=== PATIENT | female | born 1965 | race Caucasian/White ===

== ENCOUNTER 2021-05-07 07:51 | Outpatient (REF) | payer OTHER, SELFPAY ==
[2021-05-07 08:09] LABS: MANUAL DIFF FLAG NO
[2021-05-07 08:15] LABS: Basophils Percent Auto 0.6 % (0-2); Eosinophils Absolute Auto 0.1 X10*3/uL (0.0-0.4); Eosinophils Percent Auto 1.5 % (0-4); Hematocrit 40.2 % (37-47); Hemoglobin 13.4 g/dl (12.0-16.0); Imm Gran Abs Auto 0.03 X10*3/uL (0.00-0.03); Imm Gran Pct Auto 0.4 % (0.0-0.4); Lymphocytes Absolute Auto 2.3 X10*3/uL (1.2-4.9); Lymphocytes Percent Auto 34.5 % (20-40); Mean Corpuscular HGB Conc 33.3 g/dl (31.0-35.0); Mean Corpuscular Hemoglobin 31.5 pg (27.0-33.0); Mean Corpuscular Volume 94.6 fL (80-98); Mean Platelet Volume 10.9 fL (9.4-12.3); Monocytes Absolute Auto 0.4 X10*3/uL (0.1-1.2); Monocytes Percent Auto 5.7 % (2-11); Neutrophils Absolute Auto 3.8 X10*3/uL (2.0-8.3); Neutrophils Percent Auto 57.3 % (45-73); Platelet Count 264 X10*3/uL (160-400); Red Blood Count 4.25 X10*6/uL (4.20-5.50); Red Cell Distribution Width 12.3 % (11.0-16.0); White Blood Count 6.7 X10*3/uL (4.8-10.8)
[2021-05-07 08:24] LABS: Estimated Average Glucose 100 mg/dL; Hemoglobin A1c % 5.1 %
[2021-05-07 09:28] LABS: Alanine Aminotransferase 26 U/L (0-31); Albumin Level 4.6 g/dL (3.5-5.0); Alkaline Phosphatase 82 U/L (39-117); Anion Gap 14 (12-20); Aspartate Amino Transferase 21 U/L (5-31); Bilirubin Total 0.5 mg/dL (0.0-1.0); Blood Urea Nitrogen 13 mg/dL (9-16); Calcium 9.7 mg/dL (8.4-10.2); Carbon Dioxide 23 mmol/L (22-29); Chloride 108 mmol/L (96-108); Cholesterol 221 mg/dL; Estimated Glomerular Filt Rate > 60; Glucose Fasting 97 mg/dL (60-99); HDL Cholesterol 73 mg/dL; LDL Cholesterol Calculated 138 mg/dl; Potassium 4.4 mmol/L (3.3-5.1); Sodium 141 mmol/L (135-145); Total Protein 7.6 g/dL (6.5-8.0); Triglycerides 51 mg/dL
[2021-05-07 10:11] LABS: TSH reflex Free T4 0.35 uIU/mL (0.32-4.0)
== END 2021-05-07 07:52 | disposition home or self-care (01) ==
LOC: HO.LAB 07:51
PROVIDERS: PCP Physician Assistant; Visit Provider Physician Assistant
DX: E03.9 Hypothyroidism, unspecified (principal); E78.00 Pure hypercholesterolemia, unspecified
CPT/HCPCS: 36415; 80053; 80061; 83036; 84443; 85025

== ENCOUNTER 2022-03-02 07:36 | Outpatient (REF) | payer OTHER, SELFPAY ==
[2022-03-02 09:10] LABS: Alanine Aminotransferase 34 U/L (0-31); Albumin Level 4.7 g/dL (3.5-5.0); Alkaline Phosphatase 71 U/L (39-117); Anion Gap 15 (12-20); Aspartate Amino Transferase 25 U/L (5-31); Bilirubin Total 0.6 mg/dL (0.0-1.0); Blood Urea Nitrogen 17 mg/dL (9-16); Calcium 9.9 mg/dL (8.4-10.2); Carbon Dioxide 23 mmol/L (22-29); Chloride 107 mmol/L (96-108); Cholesterol 193 mg/dL; Estimated Glomerular Filt Rate > 60; Glucose Fasting 106 mg/dL (60-99); HDL Cholesterol 61 mg/dL; LDL Cholesterol Calculated 124 mg/dl; Potassium 4.5 mmol/L (3.3-5.1); Sodium 140 mmol/L (135-145); Total Protein 7.6 g/dL (6.5-8.0); Triglycerides 43 mg/dL
[2022-03-02 09:21] LABS: TSH reflex Free T4 0.43 uIU/mL (0.32-4.0)
== END 2022-03-02 07:37 | disposition home or self-care (01) ==
LOC: HO.LAB 07:36
PROVIDERS: PCP Physician Assistant; Visit Provider Physician Assistant
DX: E03.9 Hypothyroidism, unspecified (principal); E78.00 Pure hypercholesterolemia, unspecified
CPT/HCPCS: 36415; 80053; 80061; 84443

== ENCOUNTER 2023-03-07 07:43 | Outpatient (REF) | payer OTHER, SELFPAY ==
[2023-03-07 08:04] LABS: Hematocrit 40.1 % (37.0-47.0); Hemoglobin 13.6 g/dl (12.0-16.0); Mean Corpuscular HGB Conc 33.9 g/dl (31.0-35.0); Mean Corpuscular Hemoglobin 31.6 pg (27.0-33.0); Mean Platelet Volume 10.7 fL (9.4-12.3); Platelet Count 300 X10*3/uL (160-400); Red Blood Count 4.31 X10*6/uL (4.20-5.50); Red Cell Distribution Width 11.9 % (11.0-16.0); White Blood Count 6.1 X10*3/uL (4.8-10.8)
[2023-03-07 08:48] LABS: Alanine Aminotransferase 35 U/L (0-31); Albumin Level 4.6 g/dL (3.5-5.0); Alkaline Phosphatase 76 U/L (39-117); Anion Gap 13 (12-20); Aspartate Amino Transferase 22 U/L (5-31); Bilirubin Total 0.6 mg/dL (0.0-1.0); Blood Urea Nitrogen 17 mg/dL (9-16); Calcium 9.9 mg/dL (8.4-10.2); Carbon Dioxide 24 mmol/L (22-29); Chloride 106 mmol/L (96-108); Cholesterol 182 mg/dL; Estimated Glomerular Filt Rate > 60; Glucose Fasting 105 mg/dL (60-99); HDL Cholesterol 58 mg/dL; LDL Cholesterol Calculated 116 mg/dl; Potassium 4.2 mmol/L (3.3-5.1); Sodium 139 mmol/L (135-145); Total Protein 7.4 g/dL (6.5-8.0); Triglycerides 43 mg/dL
[2023-03-07 09:03] LABS: TSH reflex Free T4 1.19 uIU/mL (0.32-4.0)
[2023-03-07 09:07] LABS: Microalbum/Creatinine Ratio Ur 12.2 ug/mg cr
== END 2023-03-07 07:44 | disposition home or self-care (01) ==
LOC: HO.LAB 07:43
PROVIDERS: PCP Physician Assistant; Visit Provider Physician Assistant
DX: E03.9 Hypothyroidism, unspecified (principal); E78.00 Pure hypercholesterolemia, unspecified; I10 Essential (primary) hypertension
CPT/HCPCS: 36415; 80053; 80061; 82043; 84443; 85027

== ENCOUNTER 2024-05-06 13:23 | Outpatient (AMB) | payer BC, SELFPAY ==
[2024-05-06 13:27] VITALS: BP 120/68; PULSE 76; O2SAT 97; BMI 31.1
--- NOTE | 2024-05-06 13:27 | A.OFFPC_ITS ---
Vital Signs 05/06/24 13:27 Height 5 ft 4 in Weight 181 lb BMI 31.1 BP 120/68 Blood Pressure Location Lt brachial Position Sitting Pulse 76 Pulse Source Pulse Oximeter Pulse Oximetry (%) 97 Oxygen Delivery Method Room Air Intake Visit Reasons: pe Intake Note: Patient is here today for a physical. 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 Accompanied by: Self / Same As Patient Allergies No Known Allergies [No Known Allergies*] Allergy (Verified 05/06/24 13:36) Medication List - Last Reconciled 05/06/24 by Bryan Galvan PA-C levothyroxine 112 mcg PO DAILY 90 days lisinopril 5 mg PO DAILY 30 days simvastatin 10 mg PO DAILY Tobacco use date assessed: 05/06/24 Dental Screening Dental Screen Date: 05/06/24 Did you have a dental visit in the last 12 months?: Yes Did you have a dental problem in the last 6 months where you did not have access to dental care?: No Was dental information given to patient?: Patient has dentist HPI pe HPI Details Patient is a 58-year-old female here today for a PE.? Patient has a past medical history significant for hypothyroidism,? and High cholesterol. Hypertension: Blood pressure in office acceptable, continues on low-dose lisinopril with good effect. .. Hypothyroidism:? Most recent TSH acceptable, will recheck and continue to follow..? Otherwise does not exam the any other hypothyroid symptoms . Will continue her current levothyroxine dose. .. Obesity: Has lost weight since last office visit. Patient does understand her BMI is over 30 and will continue to be more physically active and adapting to better eating habits to reduce her weight .. HLD:? Patient's most recent lipid panel showing improved total cholesterol and LDL. Continues on low-dose statin therapy with good effect. .. Colonoscopy: done 2014 - repeat 10years-needs repeat in 2024 .. Mammo: Followed by [facility] every 6 month- has a family history of breast cancer .. 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 1. Little interest or pleasure in doing things: not at all 2. Feeling down, depressed, or hopeless: not at all 3. Trouble falling or staying asleep, or sleeping too much: not at all 4. Feeling tired or having little energy: not at all 5. Poor appetite or overeating: not at all 6. Feeling bad about yourself - or that you are a failure or have let yourself or your family down: not at all 7. Trouble concentrating on things, such as reading the newspaper or watching television: not at all 8. Moving or speaking so slowly that other people could have noticed. Or the opposite - being so fidgety or restless that you have been moving around a lot more than usual: not at all 9. Thoughts that you would be better off or of hurting yourself in some way: not at all Total score: 0 Depression Screening Interpretation: Negative Depression Screening Done: Yes 16005 - PHQ-9 Billing: Yes Source: Developed by Drs. Jignesh Kaminski, Tracie Aleman, Nikita Vallejo and colleagues, with an educational zulema from [employer]. Thrive Questionnaire Date Thrive assessed: 05/06/24 I am a: Patient What is your living situation today?: I have a steady place to live Within the past 12 months, did the food you bought not last and you didn't have the money to get more?: Never true Within the past 12 months, did you worry whether your food would run out before you got money to buy more?: Never true Do you have trouble paying for medicines?: No Do you have trouble getting transportation to medical appointments?: No Do you have trouble paying your heating and electricity bill?: No Do you have trouble taking care of your child, family member or friend?: No Do you have trouble with day-to-day activities such as bathing, preparing meals, shopping, managing finances, etc.?: No Are you currently unemployed and looking for a job?: No Are you interested in more education?: No Please select the resources that you would like help with: None Currently or been in a relationship where the following occur: No concerns reported THRIVE Score: 0 AUDIT C Alcohol Use Questionnaire (AUDIT-C) 1. How often do you have a drink containing alcohol?: 2-3 times a week 2. How many drinks containing alcohol do you have on a typical day when you are drinking?: 3 or 4 3. How often do you have six or more drinks on one occasion?: Never Total Score: 4 MAYRA-7 AMB Questionnaire MAYRA-7 Date MAYRA - 7 assessed: 05/06/24 Feeling nervous, anxious, or on edge: 0 = Not at all Not being able to stop or control worryin = Not at all Worrying too much about different things: 0 = Not at all Trouble relaxin = Not at all Being so restless that it is hard to sit still: 0 = Not at all Becoming easily annoyed or irritable: 0 = Not at all Feeling afraid as if something awful might happen: 0 = Not at all Total MAYRA-7 score (0-4 normal; 5-9 mild; 10-14 moderate; 15-21 severe): 0 Source: Developed by Drs. Jignesh Kaminski, Tracie Aleman, Nikita Vallejo and colleagues, with an educational zulema from [employer]. MAYRA-7 Assessment Billing MAYRA-7 Assessment Tool: MAYRA-7 Assessment 87124 Review of Systems Const Denies body aches, Denies chills, Denies excessive sweating, Denies fatigue, Denies fever(s) and Denies headache(s) Eyes Denies blurry vision ENT Denies dysphagia, Denies vertigo, Denies dizziness, Denies headache(s), Denies hearing loss and Denies tinnitus Card Denies chest pain, Denies chest pain with activity, Denies syncope, Denies irregular heart rhythm and Denies dyspnea Resp Denies chest congestion, Denies cough, Denies hemoptysis, Denies dyspnea and Denies wheezing GI Denies abdominal pain, Denies melena, Denies hematochezia, Denies coffee ground emesis, Denies dysphagia, Denies diarrhea, Denies nausea and Denies vomiting Denies urinary frequency, Denies dysuria, Denies urinary hesitancy and Denies urinary urgency Musc Denies arthralgias, Denies limited range of motion, Denies muscle cramps and Denies muscle weakness Skin/Breast Denies rash and Denies skin ulcer Neuro Denies Abnormal speech present, Denies confusion, Denies vertigo, Denies dizziness, Denies syncope, Denies headache(s), Denies memory loss and Denies seizure-like activity Psych Denies anxiety, Denies confusion, Denies depression, Denies memory loss, Denies panic attacks and Denies paranoia Endo Denies excessive sweating, Denies fatigue, Denies flushing, Denies polydipsia and Denies polyuria Aller/Immun Denies wheezing Physical exam (Primary Care) Vital Signs: Last Vital Signs Pulse 76 05/06/24 13:27 BP 120/68 05/06/24 13:27 Pulse Ox 97 05/06/24 13:27 Oxygen Delivery Method Room Air 05/06/24 13:27 BMI result Body Mass Index 31.1 Tobacco/Smoking Status: Tobacco use Status Tobacco use date assessed 05/06/24 05/06/24 13:29 Patient Tobacco Use Status Never used Tobacco 05/06/24 13:29 e-Cigarette/Vaping Use Never Used 05/06/24 13:29 PHQ-9: PHQ-9 Score PHQ-9: Total score 0 05/06/24 13:29 Depression Screening Interpretation: Negative Thrive Assessment: Date of Thrive Assessment Date Thrive assessed 05/06/24 05/06/24 13:29 Currently or been in a relationship where the following occur: No concerns reported Const General: cooperative, comfortable, no acute distress, alert and awake; No confusion Orientation/consciousness: oriented to person, oriented to place, patient oriented x3 and No confusion HENMT Head: Yes normocephalic Ears: external ears normal and TM's normal bilaterally Face and sinus: No sinus tenderness Mouth: Normal oral and palatal mucosa present and tongue normal Teeth and gingiva: dentition normal and gingiva normal Throat: Yes posterior oropharynx normal, Yes tonsils normal and Yes uvula midlin e Eyes Conjunctivae: conjunctivae normal Sclerae: sclerae normal Pupils: Equal, round and reactive pupils present EOM: EOMs intact bilaterally Direct Ophthalmoscopy: No no photophobia Neck Neck: Yes no lymphadenopathy, No tender and Yes no JVD Thyroid: Thyroid normal Carotids: no bruits Chest Chest palpation & inspection: no tenderness Resp Effort & Inspection: normal respiratory effort, no audible wheezes, not labored and no stridor Auscultation: no crackles, no rales, no rhonchi and no wheezes Cardio Jugular venous distension: no JVD Rate: regular rate, not bradycardic and not tachycardic Rhythm: regular rhythm Bruits: no carotid bruits Peripheral pulses: Peripheral pulses 2+ throughout GI Inspection: Yes normal to inspection, No abdominal wall ecchymosis and No visible herniation Palpation (GI): Soft to palpation, nontender, no guarding, not rigid and No hepatosplenomegaly present Auscultation: normoactive bowel sounds General: Yes no CVA tenderness Back/Spine/Pelvis Back: no CVA tenderness and No back tenderness Cervical Spine: cervical ROM normal Thoracic/Lumbar Spine: thoracic and lumbar spine normal to inspection, straight leg raise negative bilaterally, No thoraco-lumbar ROM limited and No lumbar spinal tenderness Skin Lesions: no lesions Rashes: no rashes Wounds: no wounds Neuro General: oriented to person, oriented to place, patient oriented x3, CN's II-XI intact bilaterally and No confusion Cranial nerves: Yes Equal, round and reactive pupils present and Yes Normal accommodation reflex present Cognition (Neuro): normal cognition Speech: No Abnormal speech present Gait exam (Neuro): Normal gait present Motor exam (neuro): 5/5 motor strength present throughout Extrem Right upper extremity: full ROM; no cyanosis Left upper extremity: full ROM; no cyanosis Right lower extremity: no edema Left lower extremity: no edema Psych Appearance: grossly normal Mental Status: mental status grossly normal Affect: normal affect Attitude: cooperative Thought process: Normal thought process present Assessment and Plan Assessment & Plan (1) Annual physical exam: Code(s): Z00.00 - Encounter for general adult medical examination without abnormal findings (2) HTN (hypertension): Code(s): I10 - Essential (primary) hypertension Qualifiers: Hypertension type: primary hypertension Qualified Code(s): I10 - Essential (primary) hypertension Plan: Patient's blood pressure acceptable today in office. Will continue her current dose of lisinopril with goal blood pressure to be below 140/90 (3) Obese: Code(s): E66.9 - Obesity, unspecified Qualifiers: Obesity type: due to excess calories Obesity classification: adult class 1 (BMI 30 - 34.9) Serious obesity comorbidity presence: without serious comorbidity Body mass index: BMI 32.0-32.9 Qualified Code(s): E66.09 - Other obesity due to excess calories; Z68.32 - Body mass index [BMI] 32.0-32.9, adult Plan: Has been able to lose a few lb since last office visit.. Patient does understand her BMI is over 30 will work on being more physically active to reduce her weight. (4) HLD (hyperlipidemia): Code(s): E78.5 - Hyperlipidemia, unspecified Qualifiers: Hyperlipidemia type: pure hypercholesterolemia Qualified Code(s): E78.00 - Pure hypercholesterolemia, unspecified Plan: Patient's most recent lipid panel showing appropriate LDL and total cholesterol. Will continue low-dose does statin therapy with goal LDL to be below 160 (5) Hypothyroidism: Code(s): E03.9 - Hypothyroidism, unspecified Qualifiers: Hypothyroidism type: unspecified Qualified Code(s): E03.9 - Hypothyroidism, unspecified Plan: Patient's most recent TSH stable. Has been clinically and chemically euthyroid. Will continue current dose of levothyroxine 112 mcg. Will continue to follow TSH to assure normal. (6) Family history of breast cancer: Code(s): Z80.3 - Family history of malignant neoplasm of breast Plan: Patient's mother was diagnosed with breast cancer thus patient gets mammograms every 6 months done at [facility]. Orders: Orders Microalbumin, Random (w Creat) Today I10 - Essential (primary) hypertension Comprehensive [place]. Panel Fast Today I10 - Essential (primary) hypertension Lipid Panel Today E78.00 - Pure hypercholesterolemia, unspecified Complete Blood Count no Diff Today I10 - Essential (primary) hypertension TSH reflex Free T4 Today E03.9 - Hypothyroidism, unspecified Medications: Refilled simvastatin 10 mg PO DAILY 90 tabs 2RF E03.9 - Hypothyroidism, unspecified Patient Instructions: Goal: Blood pressure remain below 140/90, LDL to remain below 160 Barriers: Adherence to physical activity and healthy eating habits Coding Level of Care Code Est Pt Prev Care 40-64y(64503) Diagnoses Annual physical exam Z00.00 Primary hypertension I10 Hypertension type: primary hypertension Class 1 obesity due to excess calories without serious comorbidity with body mass index (BMI) of 32.0 to 32.9 in adult E66.09; Z68.32 Obesity type: due to excess calories Obesity classification: adult class 1 (BMI 30 - 34.9) Serious obesity comorbidity presence: without serious comorbidity Body mass index: BMI 32.0-32.9 Pure hypercholesterolemia E78.00 Hyperlipidemia type: pure hypercholesterolemia Hypothyroidism, unspecified type E03.9 Hypothyroidism type: unspecified Family history of breast cancer Z80.3 Additional Codes MAYRA-7 Assessment Billing - MAYRA-7 Assessment Tool: MAYRA-7 Assessment 26943 ([id number])
== END 2024-05-06 14:06 | disposition home or self-care (01) ==
PROVIDERS: Visit Provider Physician Assistant
DX: Z00.00 Encounter for general adult medical examination without abnormal findings (principal); I10 Essential (primary) hypertension; E66.09 Other obesity due to excess calories; Z68.32 Body mass index [BMI] 32.0-32.9, adult; E78.00 Pure hypercholesterolemia, unspecified; E03.9 Hypothyroidism, unspecified; Z80.3 Family history of malignant neoplasm of breast
CPT/HCPCS: 99396

== ENCOUNTER 2024-05-13 08:44 | Outpatient (REF) | payer BC, SELFPAY ==
[2024-05-13 09:33] LABS: Hematocrit 38.9 % (37.0-47.0); Hemoglobin 13.2 g/dl (12.0-16.0); Mean Corpuscular HGB Conc 33.9 g/dl (31.0-35.0); Mean Corpuscular Hemoglobin 31.2 pg (27.0-33.0); Mean Platelet Volume 10.9 fL (9.4-12.3); Platelet Count 329 X10*3/uL (160-400); Red Blood Count 4.23 X10*6/uL (4.20-5.50); Red Cell Distribution Width 11.9 % (11.0-16.0); White Blood Count 6.8 X10*3/uL (4.8-10.8)
[2024-05-13 10:03] LABS: Alanine Aminotransferase 25 U/L (0-31); Albumin Level 4.8 g/dL (3.5-5.0); Alkaline Phosphatase 75 U/L (39-117); Anion Gap 13 (12-20); Aspartate Amino Transferase 21 U/L (5-31); Bilirubin Total 0.4 mg/dL (0.0-1.0); Blood Urea Nitrogen 21 mg/dL (9-16); Calcium 9.7 mg/dL (8.4-10.2); Carbon Dioxide 23 mmol/L (22-29); Chloride 104 mmol/L (96-108); Cholesterol 176 mg/dL (<200); Estimated Glomerular Filt Rate > 60; Glucose Fasting 100 mg/dL (60-99); HDL Cholesterol 76 mg/dL (>40); LDL Cholesterol Calculated 90 mg/dL (<100); Sodium 136 mmol/L (135-145); Total Protein 8.1 g/dL (6.5-8.0); Triglycerides 50 mg/dL (<150)
[2024-05-13 10:18] LABS: TSH reflex Free T4 0.21 uIU/mL (0.32-4.0)
[2024-05-13 12:26] LABS: Creatinine Urine 41.59 mg/dL; Microalbum/Creatinine Ratio Ur 16.8 ug/mg cr (<30)
== END 2024-05-13 08:45 | disposition home or self-care (01) ==
LOC: HO.LAB 08:44
PROVIDERS: PCP Physician Assistant; Visit Provider Physician Assistant
DX: E78.00 Pure hypercholesterolemia, unspecified (principal); I10 Essential (primary) hypertension; E03.9 Hypothyroidism, unspecified
CPT/HCPCS: 36415; 80053; 80061; 82043; 82570; 84439; 84443; 85027

== ENCOUNTER 2024-08-20 08:19 | Outpatient (REF) | payer BC, SELFPAY ==
[2024-08-22 15:03] LABS: HPV mRNA E6/E7 Not Detected (Not Detected)
== END 2024-08-20 08:20 | disposition home or self-care (01) ==
LOC: HO.LNP 08:19
PROVIDERS: PCP Physician Assistant; Visit Provider Advanced Practice Midwife
DX: Z01.419 Encounter for gynecological examination (general) (routine) without abnormal findings (principal)
CPT/HCPCS: 87624; 88175

== ENCOUNTER 2024-08-20 08:19 | Outpatient (AMB) | payer BC, SELFPAY ==
[2024-08-20 08:26] VITALS: BP 126/72; BMI 30.9
--- NOTE | 2024-08-20 08:26 | A.OFFVIS_ITS ---
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 She is doing well with no concerns. Attempting to eat a healthy diet with calcium and vitamin D and stays active with exercise. Currently not sexually active. Denies any vaginal dryness or irritation. STI testing offered; she declines. Last pap smear; 2018. Last mammogram; 2023. Colonoscopy is scheduled. Denies any family history of ovarian or colon cancer. Family history of breast cancer-mother. 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 Cognitive needs: No Hearing needs: No Vision needs: No Female Reproductive History Menstrual Menopause type: natural Age of menopause: 47 Total pregnancies: 2 Full term: 2 Number of Living Children: 2 Date of last pap smear: 05/01/19 History of abnormal pap smear: No History of STI: No Date of Mammogram: 07/16/24 History of abnormal mammogram: Yes Review of Systems Const All systems reviewed & are unremarkable except as noted in HPI and below Reports as per HPI Eyes Reports no additional complaints ENT Reports no additional complaints Card Reports no additional complaints Resp Reports no additional complaints GI Reports as per HPI and Reports no additional complaints Reports as per HPI Musc Reports no additional complaints Skin/Breast Reports as per HPI Neuro Reports no additional complaints Psych Reports no additional complaints Endo Reports no additional complaints Nasir/Lymph Reports no additional complaints Aller/Immun Reports no additional complaints Physical Exam Const General: cooperative, healthy appearing, no acute distress, well developed and alert Orientation/consciousness: patient oriented x3 HEENT Head: Yes normal to inspection Eyes General: appearance normal, both eyes and all related structures Neck Neck: Yes normal visual inspection Thyroid: Thyroid normal Chest Chest palpation & inspection: normal inspection of the chest and other (no puckering, dimpling, peau de orange, retraction, discharge, masses) Breast/axilla inspection: normal inspection of the breasts Breast/axilla palpation: normal palpation of the breasts Resp Effort & Inspection: normal respiratory effort GI Inspection: Yes normal to inspection Palpation (GI): Soft to palpation Rectal Exam - Female: deferred General: Yes bladder normal to palpation External Female Exam: normal external appearance and normal appearance of the urethra Speculum Exam - Vagina: normal appearance of the vagina, normal palpation, normal vaginal discharge and vagina atrophic Speculum Exam - Cervix: normal appearance of the cervix, normal palpation and Other cervical findings present (Stenotic os) Bimanual exam- vagina & uterus: normal bimanual exam, normal palpation, uterine size normal, bladder normal to palpation, normal palpation and non-tender Bimanual Exam- Adnexa, other: no masses Skin General skin exam: no rashes or lesions noted Rashes: no rashes Neuro General: patient oriented x3 Cognition (Neuro): normal cognition Extrem General: Yes normal to inspection Psych Attitude: cooperative Thought process: Normal thought process present Assessment & Plan Assessment & Plan (1) Encounter for well woman exam with routine gynecological exam: Code(s): Z01.419 - Encounter for gynecological examination (general) (routine) without abnormal findings Category: Medical Plan Discussed: Current recommendations for pap smears per ASCCP guidelines. Breast awareness, periodic self breast exams and yearly mammogram. Maintain a healthy lifestyle, well balanced diet including Calcium 1,200 mg and Vitamin D 600 IU daily, and routine exercise. Contact the office with any postmenopausal bleeding. Patient verbalizes understanding and agrees to the plan of care. She was given opportunity to ask questions and all questions were answered to the best of my ability. RTO in 1 year for annual cardiology teacher exam. This note is constructed using voice recognition software. While every effort has been made to ensure accuracy, data entry specialist errors may have been included. Coding Level of Care Code New Pt Prev Care 40-64y(88606) Diagnoses Encounter for well woman exam with routine gynecological exam Z01.419
== END 2024-08-20 09:11 | disposition home or self-care (01) ==
PROVIDERS: PCP Physician Assistant; Visit Provider Advanced Practice Midwife
DX: Z01.419 Encounter for gynecological examination (general) (routine) without abnormal findings (principal)
CPT/HCPCS: 99386

== ENCOUNTER → 2024-12-03 07:47 | Outpatient (BNVA) | payer OTHER, SELFPAY | PROVIDERS: PCP Physician Assistant; Visit Provider Registered Nurse | DX: S06.0X0A Concussion without loss of consciousness, initial encounter (principal); S60.211A Contusion of right wrist, initial encounter; S50.01XA Contusion of right elbow, initial encounter; W00.2XXA Other fall from one level to another due to ice and snow, initial encounter | CPT/HCPCS: 29125; 73080; 73110; 99204 ==

== ENCOUNTER 2024-12-11 09:16 | Outpatient (REF) | payer OTHER, SELFPAY ==
--- NOTE | ~2024-12-11 | XR_ITS ---
CLINICAL HISTORY: M25.531 - Pain in right wrist 3 view right wrist Comparison: CT/MO/SR - CT WRIST RT WO IV CON - 12/06/24 14:29 EST Findings: Bones intact. No dislocations. No significant arthritic change or erosions. No radiopaque foreign body. IMPRESSION: 1. No acute findings. This document has been electronically signed by: Aleksey Lord MD on 12/11/2024 22:58:45
== END 2024-12-11 09:17 | disposition home or self-care (01) ==
LOC: HO.HOSX 09:16
PROVIDERS: Visit Provider Orthopaedic Surgery
DX: M25.531 Pain in right wrist (principal); S62.114A Nondisplaced fracture of triquetrum [cuneiform] bone, right wrist, initial encounter for closed fracture; S62.144A Nondisplaced fracture of body of hamate [unciform] bone, right wrist, initial encounter for closed fracture; S62.310A Displaced fracture of base of second metacarpal bone, right hand, initial encounter for closed fracture; W00.0XXA Fall on same level due to ice and snow, initial encounter; Y93.89 Activity, other specified; Y92.219 Unspecified school as the place of occurrence of the external cause; Y99.8 Other external cause status
CPT/HCPCS: 73110; 99202

== ENCOUNTER 2024-12-11 09:19 | Outpatient (AMB) | payer OTHER, SELFPAY ==
--- NOTE | 2024-12-11 08:57 | MHC.OFFVIS ---
Vital Signs 12/11/24 09:42 Height 5 ft 4 in Weight 180 lb BMI 30.9 Intake Visit Reasons: FC-R wrist fx WC DOI 12/02/24. Intake Note: Kay 59 yr old right hand dominant female presents today for a new patient visit for her W/C injury for her right wrist. DOI :12/02/24. 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 Seen with W/C where xrays were done, she had a follow up visit with [facility], at this time she she had increase swelling and bruising. A CT scan was done and was told she had a fracture. Currently states she has mild pain, little throbbing, and has been using a velcro wrist brace. Denies numbness or tingling in finger tips and is able to lumber mover her fingers. Allergies No Known Allergies [No Known Allergies*] Allergy (Verified 12/11/24 09:49) HPI HPI FC-R wrist fx WC DOI 12/02/24.: Details: Kay is a 59 year old right hand dominant woman who presents for a right triquetral fracture, DOI: 12/02/24. This is a workplace injury. She low a CT scan completed, was placed in a wrist splint, and referred here by [facility]. She complains of mild pain & throbbing in her wrist. She denies any numbness or tingling. 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 [facility] Medical History (Updated 12/11/24 @ 10:22 by Blue Villarreal) HTN (hypertension) HLD (hyperlipidemia) Hypothyroidism Surgical History History of colonoscopy History of repair of rotator cuff Family History Father CVD (cardiovascular disease) CAD (coronary artery disease) Mother Breast cancer Hypertension Social History Housing: House Alcohol intake: current Alcohol intake frequency: a few times a month Patient Tobacco Use Status: Never used Tobacco e-Cigarette/Vaping Use: Never Used Second Hand Smoke Exposure: Yes Substance Use Type: Marijuana service: No Current occupational status: employed 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 Cognitive needs: No Hearing needs: No Vision needs: No Review of Systems Const All systems reviewed & are unremarkable except as noted in HPI and below Physical Exam Vital Signs: BMI result Body Mass Index 30.9 Const General: cooperative, healthy appearing and no acute distress Orientation/consciousness: patient oriented x3 HEENT Head: Yes normocephalic and Yes atraumatic Eyes EOM: EOMs intact bilaterally Resp Effort & Inspection: normal respiratory effort and able to speak in complete sentences Cardio Jugular venous distension: no JVD Skin General skin exam: turgor normal Rashes: no rashes Neuro General: patient oriented x3 Extrem Other: Evaluation of Right Upper Extremity: The patient is alert, oriented, and in no acute distress Neuro: Median, Ulnar, Radial nerves motor and sensory intact and sensation is normal to the tips of all digits Vascular: Cap refill brisk ROM: With encouragement she can make a weak fist and extend all her digits General: No lacerations or abrasions, or evidence of open injury Resolving swelling about the wrist Resolving ecchymosis in the palm and volar aspect of the wrist tender over the dorsal aspect of the hamate & triquetrum Radiographs: 3 views of the right hand & wrist were taken and viewed by me today in clinic. The CT scan of her wrist was also reviewed by me today in clinic, Radiology report pending. They show a non-displaced dorsal triquetral body fracture, and a minimally displaced hamate body fracture. There is a non-displaced 2nd metacarpal base fracture. The 4th & 5th MCP joints appear to be in good condition Psych Appearance: grossly normal Affect: normal affect Attitude: cooperative Office Procedures AMB Fracture Care Details: Trapezium fracture, and hamate fracture 73550 x2 Fracture Billing Code: Fracture Billing Code Assessment & Plan Assessment & Plan (1) Nondisplaced fracture of hamate bone of right wrist: Onset Date: ~12/02/24 Comment: (DOI 12/02/24 FOOSH/Slip & Fall Right wrist @ work) Code(s): S62.144A - Nondisplaced fracture of body of hamate [unciform] bone, right wrist, initial encounter for closed fracture Category: Medical (2) Nondisplaced fracture of triquetral bone of right wrist: Onset Date: ~12/02/24 Comment: (DOI 1/27/25 FOOSH/Slip & Fall Right wrist @ work) Code(s): S62.114A - Nondisplaced fracture of triquetrum [cuneiform] bone, right wrist, initial encounter for closed fracture Category: Medical (3) Fracture of base of second metacarpal bone of right hand: Code(s): S62.310A - Displaced fracture of base of second metacarpal bone, right hand, initial encounter for closed fracture Category: Medical Plan Assessment & Plan: 1. Right dorsal triquetral body fracture, longitudinal From a fall, DOI: 12/02/24 This is a workplace injury 2. Right hamate body fracture, From a fall, DOI: 12/02/24 This is a workplace injury 3. Right 2nd metacarpal base fracture, non-displaced From a fall, DOI: 12/02/24 This is a workplace injury I educated her about this condition I discussed operative and non-operative treatment options This can be managed non-operatively, and she is in agreement She was fitted for a new velcro wrist splint, to be worn like a cast except for showering, for the next 4 weeks. She will keep her original splint to wear while at work. 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 She was given a note for work to return on light duty, with a 2lb weight limit for his RUE for the next 6 weeks She will follow up in 3-4 weeks, with X-rays 3V R wrist, OOP Scribed for Mary Franks MD by Blue Villarreal, biomedical manager, on 12/11/24 at 10:00 AM, EST. Orders: Orders XR wrist RT min 3V Today M25.531 - Pain in right wrist Coding Level of Care Code New Pt Level 4 (70935) Diagnoses Nondisplaced fracture of hamate bone of right wrist S62.144A Nondisplaced fracture of triquetral bone of right wrist S62.114A Fracture of base of second metacarpal bone of right hand S62.310A CPT Codes Fracture Care - Fracture Billing Code: Fracture Billing Code ([id number])
[2024-12-11 09:42] VITALS: BMI 30.9
== END 2024-12-11 10:35 | disposition home or self-care (01) ==
PROVIDERS: PCP Physician Assistant; Visit Provider Orthopaedic Surgery
DX: S62.144A Nondisplaced fracture of body of hamate [unciform] bone, right wrist, initial encounter for closed fracture (principal); S62.114A Nondisplaced fracture of triquetrum [cuneiform] bone, right wrist, initial encounter for closed fracture; S62.310A Displaced fracture of base of second metacarpal bone, right hand, initial encounter for closed fracture; Z04.2 Encounter for examination and observation following work accident
CPT/HCPCS: 99204

== ENCOUNTER → 2024-12-11 09:23 | Outpatient (BNV) | payer OTHER, SELFPAY | PROVIDERS: Visit Provider Student in an Organized Health Care Education/Training Program | DX: M25.531 Pain in right wrist (principal) | CPT/HCPCS: 73110 ==

== ENCOUNTER 2025-01-07 14:06 | Outpatient (REF) | payer OTHER, SELFPAY ==
--- NOTE | ~2025-01-07 | XR_ITS ---
CLINICAL HISTORY: M25.531 - Pain in right wrist 3 view right wrist Comparison: DX/SC - XR WRIST RT MIN 3V - 12/11/24 09:23 EST Findings: No fractures or dislocations. No significant loss of joint space, osteophyte, or erosions. No radiopaque foreign body. IMPRESSION: 1. No acute findings This document has been electronically signed by: Brook Arredondo MD on 01/08/2025 15:14:19
== END 2025-01-07 14:07 | disposition home or self-care (01) ==
LOC: HO.HOSX 14:06
PROVIDERS: Visit Provider Orthopaedic Surgery
DX: M25.531 Pain in right wrist (principal); S62.144A Nondisplaced fracture of body of hamate [unciform] bone, right wrist, initial encounter for closed fracture; S62.114A Nondisplaced fracture of triquetrum [cuneiform] bone, right wrist, initial encounter for closed fracture; S62.310A Displaced fracture of base of second metacarpal bone, right hand, initial encounter for closed fracture; W00.0XXA Fall on same level due to ice and snow, initial encounter; Y93.01 Activity, walking, marching and hiking; Y92.219 Unspecified school as the place of occurrence of the external cause; Y99.0 Civilian activity done for income or pay; Z02.6 Encounter for examination for insurance purposes
CPT/HCPCS: 73110; 99212

== ENCOUNTER 2025-01-07 15:33 | Outpatient (AMB) | payer OTHER, SELFPAY ==
--- NOTE | 2025-01-07 16:04 | MHC.OFFVIS ---
Vital Signs 01/07/25 16:23 Height 5 ft 4 in Weight 180 lb BMI 30.9 Intake Visit Reasons: OV-R wrist fx WC DOI 12/02/24 Intake Note: Kay 59 yr old female presents today for her follow up visit for her right wrist fracture from a W/C injury on 12/02/24. States her ROM has improved and is doing better. Allergies No Known Allergies [No Known Allergies*] Allergy (Verified 01/07/25 16:26) HPI HPI OV-R wrist fx WC DOI 12/02/24: Details: Kay is a 59 year old right hand dominant woman who returns for her right hand & wrist fractures, DOI: 12/02/24. This is a workplace injury. She says she is doing better and her pain has improved. She has been working on her ROM at home. She denies any numbness or tingling. 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 [facility] Medical History (Updated 12/11/24 @ 10:22 by Blue Villarreal) HTN (hypertension) HLD (hyperlipidemia) Hypothyroidism Surgical History History of colonoscopy History of repair of rotator cuff Family History Father CVD (cardiovascular disease) CAD (coronary artery disease) Mother Breast cancer Hypertension Social History Housing: House Alcohol intake: current Alcohol intake frequency: a few times a month Patient Tobacco Use Status: Never used Tobacco e-Cigarette/Vaping Use: Never Used Second Hand Smoke Exposure: Yes Substance Use Type: Marijuana service: No Current occupational status: employed 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 Cognitive needs: No Hearing needs: No Vision needs: No Review of Systems Const All systems reviewed & are unremarkable except as noted in HPI and below Physical Exam Vital Signs: BMI result Body Mass Index 30.9 Const General: no acute distress and alert Orientation/consciousness: patient oriented x3 Neuro General: patient oriented x3 Extrem Other: Evaluation of Right Upper Extremity: The patient is alert, oriented, and in no acute distress Neuro: Median, Ulnar, Radial nerves motor and sensory intact and sensation is normal to the tips of all digits Vascular: Cap refill brisk ROM: She can make a fist with good strength and no pain and extend all her digits Full pronosupination General: No lacerations or abrasions, or evidence of open injury Her swelling is resolved Resolved ecchymosis in the palm and volar aspect of the wrist Fracture sites are all completely non-tender Radiographs: 3 views of the right hand & wrist were taken and viewed by me today in clinic. They show a non-displaced dorsal triquetral body fracture, and a minimally displaced hamate body fracture. There is a non-displaced 2nd metacarpal base fracture. All with satisfactory fracture alignment and interval bony healing. Psych Appearance: grossly normal Affect: normal affect Attitude: cooperative Assessment & Plan Assessment & Plan (1) Nondisplaced fracture of hamate bone of right wrist: Onset Date: ~12/02/24 Comment: (DOI 12/02/24 FOOSH/Slip & Fall Right wrist @ work) Code(s): S62.144A - Nondisplaced fracture of body of hamate [unciform] bone, right wrist, initial encounter for closed fracture Category: Medical (2) Nondisplaced fracture of triquetral bone of right wrist: Onset Date: ~12/02/24 Comment: (DOI 12/02/24 FOOSH/Slip & Fall Right wrist @ work) Code(s): S62.114A - Nondisplaced fracture of triquetrum [cuneiform] bone, right wrist, initial encounter for closed fracture Category: Medical (3) Fracture of base of second metacarpal bone of right hand: Code(s): S62.310A - Displaced fracture of base of second metacarpal bone, right hand, initial encounter for closed fracture Category: Medical Plan Assessment & Plan: 1. Right dorsal triquetral body fracture, longitudinal From a fall, DOI: 12/02/24 This is a workplace injury 2. Right hamate body fracture, From a fall, DOI: 12/02/24 This is a workplace injury 3. Right 2nd metacarpal base fracture, non-displaced From a fall, DOI: 12/02/24 This is a workplace injury I educated her about this condition I discussed operative and non-operative treatment options This can be managed non-operatively, and she is in agreement She will discontinue her velcro wrist splint when at home and at night. She will continue to wear her splint with daily activity out of the house for the next 2 weeks. I discussed activity modifications, she is to begin using her hand for lightweight activities, and slowly increase her weight limit as tolerated for the next few weeks. 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 She can return to full duty, without restrictions, effective 01/27/25. She can follow up prn. She may contact the clinic for a referral to OT hand therapy if she is struggling with her ROM Scribed for Mary Franks MD by Blue Villarreal, medical insurance verifier, on 01/07/25 at 4:25 PM, EST. Orders: Orders XR wrist RT min 3V Today M25.531 - Pain in right wrist Coding Level of Care Code Global (04689) Diagnoses Nondisplaced fracture of hamate bone of right wrist S62.144A Nondisplaced fracture of triquetral bone of right wrist S62.114A Fracture of base of second metacarpal bone of right hand S62.310A
[2025-01-07 16:23] VITALS: BMI 30.9
== END 2025-01-07 16:33 | disposition home or self-care (01) ==
PROVIDERS: PCP Physician Assistant; Visit Provider Orthopaedic Surgery
DX: S62.144A Nondisplaced fracture of body of hamate [unciform] bone, right wrist, initial encounter for closed fracture (principal); S62.114A Nondisplaced fracture of triquetrum [cuneiform] bone, right wrist, initial encounter for closed fracture; S62.310A Displaced fracture of base of second metacarpal bone, right hand, initial encounter for closed fracture
CPT/HCPCS: 99213

== ENCOUNTER → 2025-01-07 15:42 | Outpatient (BNV) | payer OTHER, SELFPAY | PROVIDERS: Visit Provider Radiology Diagnostic Radiology | DX: M25.531 Pain in right wrist (principal) | CPT/HCPCS: 73110 ==

== ENCOUNTER 2025-05-05 08:14 | Outpatient (REF) | payer BC, SELFPAY ==
--- OUTSIDE RECORDS SUMMARY | 2025-05-05 08:17 | XMS_ITS | Patient Health Record ---
Author Organization [facility] Address [address] [place] [address] Care Team Providers Care Pe Electrical Engineer Name Role Phone Yolie(inactive) [place] GRIFFITH Primary Care Provider U aylni Jignesh Comer Unavailable [phone] Reason For Referral No Information Medications Medication SIG (Take, Route, Frequency, Duration) Notes Start Date End Date Status Simvastatin 20 MG 1 tablet in the even ing Orally Once a day Active Levothyroxine Sodium 100 MCG 1 tablet Oral Once a day Active Multi Vitamin/Minerals Active Problems Problem Type SNOMED Code ICD Code Onset Dates Problem Status W/U Status Risk Notes Problem Pre-surgery evaluation (137587062) Other specified pre-operative examination (V72.83) Active confirmed Problem Colon cancer screening (V76.51) Active confirmed Plan Of Treatment Future Test Test Name Order Date COLONOSCOPY 04/03/2015 Insurance Providers Payer Name Payer Address Payer Phone Subscriber Number Group Number Insured Name Patient Relationship to Insured Coverage Start Date Coverage End Date [facility] [address] [place] [address] [phone] [id number] MOSHE COLEMAN Self - patient is the insured Medical (General) History Medical History History ICD Code Denies [place],DM,CVA,Lung disease,renal dise ase Hypothyroidism Hyperlipidemia negative ETT in 2013 Surgical History Surgery Date(Month/Year) Shoulder surgery-right--rotater cuff
[2025-05-05 08:56] LABS: Hematocrit 38.3 % (37.0-47.0); Hemoglobin 12.9 g/dl (12.0-16.0); Mean Corpuscular HGB Conc 33.7 g/dl (31.0-35.0); Mean Corpuscular Hemoglobin 31.7 pg (27.0-33.0); Mean Corpuscular Volume 94.1 fL (80.0-98.0); Mean Platelet Volume 10.8 fL (9.4-12.3); Platelet Count 281 X10*3/uL (160-400); Red Blood Count 4.07 X10*6/uL (4.20-5.50); Red Cell Distribution Width 12.1 % (11.0-16.0); White Blood Count 5.4 X10*3/uL (4.8-10.8)
[2025-05-05 09:33] LABS: Alanine Aminotransferase 29 U/L (0-31); Albumin Level 4.8 g/dL (3.5-5.0); Alkaline Phosphatase 71 U/L (39-117); Anion Gap 10 (12-20); Aspartate Amino Transferase 24 U/L (5-31); Bilirubin Total 0.5 mg/dL (0.0-1.0); Blood Urea Nitrogen 15 mg/dL (9-16); Calcium 9.4 mg/dL (8.4-10.2); Carbon Dioxide 25 mmol/L (22-29); Chloride 106 mmol/L (96-108); Cholesterol 194 mg/dL (<200); Estimated Glomerular Filt Rate > 60; Glucose Fasting 104 mg/dL (60-99); HDL Cholesterol 73 mg/dL (>40); LDL Cholesterol Calculated 110 mg/dL (<100); Potassium 4.1 mmol/L (3.3-5.1); Sodium 137 mmol/L (135-145); Total Protein 7.8 g/dL (6.5-8.0); Triglycerides 58 mg/dL (<150)
[2025-05-05 09:50] LABS: Creatinine Urine 56.64 mg/dL; Microalbumin Urine < 5.0 mg/L
[2025-05-05 09:50] LABS: TSH reflex Free T4 1.67 uIU/mL (0.32-4.0)
== END 2025-05-05 08:15 | disposition home or self-care (01) ==
LOC: HO.LAB 08:14
PROVIDERS: PCP Physician Assistant; Visit Provider Physician Assistant
DX: I10 Essential (primary) hypertension (principal); E03.9 Hypothyroidism, unspecified; E78.00 Pure hypercholesterolemia, unspecified
CPT/HCPCS: 36415; 80053; 80061; 82043; 82570; 84443; 85027

== ENCOUNTER 2025-05-07 09:22 | Outpatient (AMB) | payer BC, SELFPAY ==
[2025-05-07 09:29] VITALS: BP 128/78; PULSE 84; O2SAT 96; BMI 30.7
--- NOTE | 2025-05-07 09:29 | MHC.PC.OV ---
Vital Signs 05/07/25 09:29 Height 5 ft 4 in Weight 179 lb 2 oz BMI 30.7 BP 128/78 Blood Pressure Location Lt brachial Position Sitting Pulse 84 Pulse Source Pulse Oximeter Temp Source Temporal Artery Scan Pulse Oximetry (%) 96 Oxygen Delivery Method Room Air Intake Visit Reasons: Annual Exam Intake Note: Patient is here today for a physical. [employer] Nurse Required: No Accompanied by: Self / Same As Patient Allergies No Known Allergies (No Known Allergies*) Allergy (Verified 05/07/25 09:56) Medication List - Last Reconciled 05/07/25 by Bryan Galvan PA-C cholecalciferol (vitamin D3) 25 mcg PO DAILY levothyroxine 100 mcg PO DAILY 90 days lisinopril 5 mg PO DAILY 30 days simvastatin 10 mg PO DAILY Tobacco use date assessed: 05/07/25 Dental Screening Dental Screen Date: 05/07/25 Did you have a dental visit in the last 12 months?: Yes Did you have a dental problem in the last 6 months where you did not have access to dental care?: No Was dental information given to patient?: Patient has dentist HPI Annual Exam HPI Details Patient is a 59 year-old female here today for a PE.? Patient has a past medical history significant for hypothyroidism, High cholesterol. Grief: The patient reports experiencing dizziness upon waking, which she attributes to grief following the loss of her brother. She noted that the dizziness has since resolved. Continues to vaughn grief though at this time does not want an independent mental health therapist or mental health medications Hypertension: Blood pressure in office acceptable, continues on low-dose lisinopril with good effect. .. Hypothyroidism:? Most recent TSH acceptable, will recheck and continue to follow..? Otherwise does not exam the any other hypothyroid symptoms . Will continue her current levothyroxine dose. .. Class 1 Obesity: Patient does understand her BMI is over 30 and will continue to be more physically active and adapting to better eating habits to reduce her weight .. HLD:? Patient's most recent lipid panel showing improved total cholesterol and LDL. Continues on low-dose statin therapy with good effect. .. Colonoscopy: done 2014 - repeat 10years-needs repeat in 2024 .. Mammo: Followed by [facility] every 6 month- has a family history of breast cancer .. vaccine : Up-to-date with COVPacketHop vaccine, , considering shingrex vacci, need Tdap Laboratory Tests 03/02/22 03/07/23 03/07/23 08:00 06:24 07:59 RBC 4.31 Hgb Creatinine 0.68 Fasting Glucose 105 H ALT 34 H 35 H Cholesterol 182 LDL Cholesterol, C alc 116 TSH 1.19 Urine Microalbumin 11.0 05/13/24 05/05/25 05/05/25 08:58 08:38 08:41 RBC 4.07 L Hgb 12.9 Creatinine Fasting Glucose 100 H 104 H ALT Cholesterol LDL Cholesterol, C alc 90 110 H TSH 0.21 L 1.67 Urine Microalbumin < 5.0 PFSH Medical History HTN (hypertension) HLD (hyperlipidemia) Hypothyroidism Surgical History History of colonoscopy History of repair of rotator cuff Family History (Updated 05/07/25 @ 10:09 by Bryan Galvan PA-C) Father CVD (cardiovascular disease) CAD (coronary artery disease) Mother Breast cancer Hypertension Brother ALS (amyotrophic lateral sclerosis) Social History (Updated 05/07/25 @ 10:10 by Bryan Galvan PA-C) Housing: House Alcohol intake: current Alcohol intake frequency: a few times a month Patient Tobacco Use Status: Never used Tobacco e-Cigarette/Vaping Use: Never Used Second Hand Smoke Exposure: Yes Substance Use Type: Marijuana service: No Current occupational status: employed 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 1. Little interest or pleasure in doing things: not at all 2. Feeling down, depressed, or hopeless: not at all 3. Trouble falling or staying asleep, or sleeping too much: not at all 4. Feeling tired or having little energy: not at all 5. Poor appetite or overeating: not at all 6. Feeling bad about yourself - or that you are a failure or have let yourself or your family down: not at all 7. Trouble concentrating on things, such as reading the newspaper or watching television: not at all 8. Moving or speaking so slowly that other people could have noticed. Or the opposite - being so fidgety or restless that you have been moving around a lot more than usual: not at all 9. Thoughts that you would be better off or of hurting yourself in some way: not at all Total score: 0 Depression Screening Interpretation: Negative Depression Screening Done: Yes 82588 - PHQ-9 Billing: Yes Source: Developed by Drs. Jignesh Kaminski, Tracie Aleman, Nikita Vallejo and colleagues, with an educational zulema from [employer]. Thrive Questionnaire Date Thrive assessed: 05/07/25 I am a: Patient What is your living situation today?: I have a steady place to live Within the past 12 months, did the food you bought not last and you didn't have the money to get more?: Never true Within the past 12 months, did you worry whether your food would run out before you got money to buy more?: Never true Do you have trouble paying for medicines?: No Do you have trouble getting transportation to medical appointments?: No Do you have trouble paying your heating and electricity bill?: No Do you have trouble taking care of your child, family member or friend?: No Do you have trouble with day-to-day activities such as bathing, preparing meals, shopping, managing finances, etc.?: No Are you currently unemployed and looking for a job?: No Are you interested in more education?: No Please select the resources that you would like help with: None Currently or been in a relationship where the following occur: No concerns reported THRIVE Score: 0 AUDIT C Alcohol Use Questionnaire (AUDIT-C) 1. How often do you have a drink containing alcohol?: 2-4 times a month 2. How many drinks containing alcohol do you have on a typical day when you are drinking?: 3 or 4 3. How often do you have six or more drinks on one occasion?: Less than monthly Total Score: 4 MAYRA-7 AMB Questionnaire MAYRA-7 Date MAYRA - 7 assessed: 05/07/25 Feeling nervous, anxious, or on edge: 0 = Not at all Not being able to stop or control worryin = Not at all Worrying too much about different things: 0 = Not at all Trouble relaxin = Not at all Being so restless that it is hard to sit still: 0 = Not at all Becoming easily annoyed or irritable: 0 = Not at all Feeling afraid as if something awful might happen: 0 = Not at all Total MAYRA-7 score (0-4 normal; 5-9 mild; 10-14 moderate; 15-21 severe): 0 Source: Developed by Drs. Jignesh Kaminski, Tracie Aleman, Nikita Vallejo and colleagues, with an educational zulema from [employer]. MAYRA-7 Assessment Billing MAYRA-7 Assessment Tool: MAYRA-7 Assessment 81209 Review of Systems Const Denies body aches, Denies chills, Denies excessive sweating, Denies fatigue, Denies fever(s) and Denies headache(s) Eyes Denies blurry vision ENT Denies dysphagia, Denies vertigo, Denies dizziness, Denies headache(s), Denies hearing loss and Denies tinnitus Card Denies chest pain, Denies chest pain with activity, Denies syncope, Denies irregular heart rhythm and Denies dyspnea Resp Denies chest congestion, Denies cough, Denies hemoptysis, Denies dyspnea and Denies wheezing GI Denies abdominal pain, Denies melena, Denies hematochezia, Denies coffee ground emesis, Denies dysphagia, Denies diarrhea, Denies nausea and Denies vomiting Denies urinary frequency, Denies dysuria, Denies urinary hesitancy and Denies urinary urgency Musc Denies arthralgias, Denies limited range of motion, Denies muscle cramps and Denies muscle weakness Skin/Breast Denies rash and Denies skin ulcer Neuro Denies Abnormal speech present, Denies confusion, Denies vertigo, Denies dizziness, Denies syncope, Denies headache(s), Denies memory loss and Denies seizure-like activity Psych Denies anxiety, Denies confusion, Denies depression, Denies memory loss, Denies panic attacks and Denies paranoia Endo Denies excessive sweating, Denies fatigue, Denies flushing, Denies polydipsia and Denies polyuria Aller/Immun Denies wheezing Physical exam (Primary Care) Vital Signs: Last Vital Signs Pulse 84 05/07/25 09:29 BP 128/78 05/07/25 09:29 Pulse Ox 96 05/07/25 09:29 Oxygen Delivery Method Room Air 05/07/25 09:29 BMI result Body Mass Index 30.7 BMI Assessment/Plan discussion: High BMI High, discussed plan: lifestyle, weight reduction, dietary and physical activity Tobacco/Smoking Status: Tobacco use Status Tobacco use date assessed 05/07/25 05/07/25 09:33 Patient Tobacco Use Status Never used Tobacco 05/07/25 10:10 e-Cigarette/Vaping Use Never Used 05/07/25 10:10 PHQ-9: PHQ-9 Score PHQ-9: Total score 0 05/07/25 10:10 Depression Screening Interpretation: Negative Thrive Assessment: Date of Thrive Assessment Date Thrive assessed 05/07/25 05/07/25 09:33 Currently or been in a relationship where the following occur: No concerns reported Const General: cooperative, comfortable, no acute distress, alert and awake; No confusion Orientation/consciousness: oriented to person, oriented to place, patient oriented x3 and No confusion HENMT Head: Yes normocephalic Ears: external ears normal and TM's normal bilaterally Face and sinus: No sinus tenderness Mouth: Normal oral and palatal mucosa present and tongue normal Teeth and gingiva: dentition normal and gingiva normal Throat: Yes posterior oropharynx normal, Yes tonsils normal and Yes uvula midline Eyes Conjunctivae: conjunctivae normal Sclerae: sclerae normal Pupils: Equal, round and reactive pupils present EOM: EOMs intact bilaterally Direct Ophthalmoscopy: No no photophobia Neck Neck: Yes no lymphadenopathy, No tender and Yes no JVD Thyroid: Thyroid normal Carotids: no bruits Chest Chest palpation & inspection: no tenderness Resp Effort & Inspection: normal respiratory effort, no audible wheezes, not labored and no stridor Auscultation: no crackles, no rales, no rhonchi and no wheezes Cardio Jugular venous distension: no JVD Rate: regular rate, not bradycardic and not tachycardic Rhythm: regular rhythm Bruits: no carotid bruits Peripheral pulses: Peripheral pulses 2+ throughout GI Inspection: Yes normal to inspection, No abdominal wall ecchymosis and No visible herniation Palpation (GI): Soft to palpation, nontender, no guarding, not rigid and No hepatosplenomegaly present Auscultation: normoactive bowel sounds General: Yes no CVA tenderness Back/Spine/Pelvis Back: no CVA tenderness and No back tenderness Cervical Spine: cervical ROM normal Thoracic/Lumbar Spine: thoracic and lumbar spine normal to inspection, straight leg raise negative bilaterally, No thoraco-lumbar ROM limited and No lumbar spinal tenderness Skin Lesions: no lesions Rashes: no rashes Wounds: no wounds Neuro General: oriented to person, oriented to place, patient oriented x3, CN's II-XI intact bilaterally and No confusion Cranial nerves: Yes Equal, round and reactive pupils present and Yes Normal accommodation reflex present Cognition (Neuro): normal cognition Speech: No Abnormal speech present Gait exam (Neuro): Normal gait present Motor exam (neuro): 5/5 motor strength present throughout Extrem Right upper extremity: full ROM; no cyanosis Left upper extremity: full ROM; no cyanosis Right lower extremity: no edema Left lower extremity: no edema Psych Appearance: grossly normal Mental Status: mental status grossly normal Affect: normal affect Attitude: cooperative Thought process: Normal thought process present Coding Level of Care Code Est Pt Prev Care 40-64y(07545) Diagnoses Annual physical exam Z00.00 Hypothyroidism, unspecified type E03.9 Hypothyroidism type: unspecified Pure hypercholesterolemia E78.00 Hyperlipidemia type: pure hypercholesterolemia Primary hypertension I10 Hypertension type: primary hypertension Additional Codes MAYRA-7 Assessment Billing - MAYRA-7 Assessment Tool: MAYRA-7 Assessment 54706 ([id number]) PHQ-9 - 50481 - PHQ-9 Billing: Yes ([id number]) Assessment & Plan Assessment & Plan (1) Annual physical exam: Code(s): Z00.00 - Encounter for general adult medical examination without abnormal findings Category: Medical Plan: As per HPI (2) Hypothyroidism: Code(s): E03.9 - Hypothyroidism, unspecified Category: Medical Qualifiers: Hypothyroidism type: unspecified Qualified Code(s): E03.9 - Hypothyroidism, unspecified Plan: Will continue her current dose of levothyroxine. Most recent TSH stable (3) HLD (hyperlipidemia): Code(s): E78.5 - Hyperlipidemia, unspecified Category: Medical Qualifiers: Hyperlipidemia type: pure hypercholesterolemia Qualified Code(s): E78.00 - Pure hypercholesterolemia, unspecified Plan: Lipid panel acceptable on most recent labs. Will recheck lipid panel to assure appropriate LDL. (4) HTN (hypertension): Code(s): I10 - Essential (primary) hypertension Category: Medical Qualifiers: Hypertension type: primary hypertension Qualified Code(s): I10 - Essential (primary) hypertension Plan: Patient's blood pressure acceptable today in office. Will continue her current dose of lisinopril with goal blood pressure to remain below 140/90 Orders: Orders Complete Blood Count no Diff Today I10 - Essential (primary) hypertension Microalbumin, Random (w Creat) Today I10 - Essential (primary) hypertension Comprehensive [place]. Panel Fast Today I10 - Essential (primary) hypertension Lipid Panel Today E78.00 - Pure hypercholesterolemia, unspecified TSH reflex Free T4 Today E03.9 - Hypothyroidism, unspecified Patient Instructions: Goal: Blood pressure to remain below 140/90, LDL to remain below 130 Barriers: Adherence to physical activity and healthy eating habits
--- OUTSIDE RECORDS SUMMARY | 2025-05-07 09:35 | XMS_ITS | Patient Health Record ---
Author Organization [facility] Address [address] [place] [address] Care Team Providers Care Manuscript Editor Name Role Phone Yolie(inactive) [place] GRIFFITH Primary Care Provider U aylin Jignesh Comer Unavailable [phone] Reason For Referral No Information Medications Medication [...] W/U Status Risk Notes Problem Pre-surgery evaluation (640279029) Other specified pre-operative examination (V72.83) Active confirmed Problem Colon cancer screening (V76.51) Active confirmed Plan Of Treatment Future Test Test Name Order Date COLONOSCOPY 04/03/2015 Insurance Providers Payer Name Payer Address Payer Phone Subscriber Number Group Number Insured Name Patient Relationship to Insured Coverage Start Date Coverage End Date [facility] [address] [place] [phone] [id number] MOSHE COLEMAN Self - patient is the insured Medical (General) History Medical History History ICD Code Denies SD,DM,CVA,Lung disease,renal dise ase Hypothyroidism Hyperlipidemia negative ETT in 2013 Surgical History Surgery Date(Month/Year) Shoulder surgery-right--rotater cuff
== END 2025-05-07 10:29 | disposition home or self-care (01) ==
LOC: HO.HMCH 09:22
PROVIDERS: PCP Physician Assistant; Visit Provider Physician Assistant
DX: Z00.00 Encounter for general adult medical examination without abnormal findings (principal); E03.9 Hypothyroidism, unspecified; E78.00 Pure hypercholesterolemia, unspecified; I10 Essential (primary) hypertension

== ENCOUNTER → 2025-05-07 09:22 | Outpatient (BNVA) | payer BC, SELFPAY | PROVIDERS: PCP Physician Assistant; Visit Provider Physician Assistant | DX: Z00.00 Encounter for general adult medical examination without abnormal findings (principal); I10 Essential (primary) hypertension; E03.9 Hypothyroidism, unspecified; E78.00 Pure hypercholesterolemia, unspecified; E66.811 Obesity, class 1 | CPT/HCPCS: 96127 ==

== ENCOUNTER 2025-08-27 07:48 | Outpatient (AMB) | payer BC, SELFPAY ==
--- OUTSIDE RECORDS SUMMARY | 2025-08-27 07:51 | XMS_ITS | Patient Health Record ---
Author Organization [facility] Address [address] [place] [address] [address] [place] [address] Care Team Providers Care Electromechanisms Design Drafter Name Role Phone Bryan Galvan Primary Care Provider Unavailab Jignesh Eagle Unavailable [phone] Reason For Referral Referring Provider First Name Bryan Referring Provider Last Name Cole Referred Organization [facility] Referred Provider Jignesh Comer Referred Address [address] [place] [address],[address],[place], [place],[address], Referred Provider Specialty Gastroentero logy Referral Priority Routine Medications Medication SIG (Take, Route, Frequency, Duration) Notes Start Date End Date Status Simvastatin 20 MG 1 tablet in the even ing Orally Once a day Active Levothyroxine Sodium 100 MCG 1 tablet Oral Once a day Active Multi Vitamin/Minerals Active Problems Problem Type SNOMED Code ICD Code Onset Dates Problem Status W/U Status Risk Notes Problem Pre-surgery evaluation (346067641) Other specified pre-operative examination (V72.83) Active confirmed Problem Colon cancer screening (512965694) Colon cancer screening (V76.51) Active confirmed Plan Of Treatment Future Test Test Name Order Date COLONOSCOPY 04/03/2015 Next Appt Details Provider Name:Jignesh Comer , 11/18/2025 01:20:00 PM, [address] [place] [address], [address], [place], [address], Insurance Providers Payer Name Payer Address Payer Phone Subscriber Number Group Number Insured Name Patient Relationship to Insured Coverage Start Date Coverage End Date [facility] [address] [place] [address] [id number] MOSHE COLEMAN Self - patient is the insured Medical (General) History Medical History History ICD Code Denies CO,DM,CVA,Lung disease,renal dise ase Hypothyroidism Hyperlipidemia negative ETT in 2013 Surgical History Surgery Date(Month/Year) Shoulder surgery-right--rotater cuff
--- NOTE | 2025-08-27 07:53 | MHC.OFFVIS ---
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 Roll Weigher concerns: none. Currently not sexually active. Denies any vaginal dryness or irritation. Attempting to eat a healthy diet with calcium and vitamin D and stays active with exercise. Last pap smear; 2023, negative. Last mammogram; 2024. Colonoscopy consult is booked. Family history of breast cancer. [facility] Medical History (Updated 08/27/25 @ 09:31 by Valerie Galindo CNM) HTN (hypertension) HLD (hyperlipidemia) Hypothyroidism Surgical History History of colonoscopy History of repair of rotator cuff Family History Father CVD (cardiovascular disease) CAD (coronary artery disease) Mother Breast cancer Hypertension Brother ALS (amyotrophic lateral sclerosis) Social History Housing: House Alcohol intake: current Alcohol intake frequency: a few times a month Patient Tobacco Use Status: Never used Tobacco e-Cigarette/Vaping Use: Never Used Second Hand Smoke Exposure: Yes Substance Use Type: Marijuana service: No Current occupational status: employed 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 Cognitive needs: No Hearing needs: No Vision needs: No Female Reproductive History Menstrual Total pregnancies: 2 Full term: 2 Number of Living Children: 2 Date of last pap smear: 08/20/24 (neg pap and hpv) Date of Mammogram: 07/21/25 (Birad 3) Review of Systems Const All systems reviewed & are unremarkable except as noted in HPI and below Reports as per HPI Eyes Reports no additional complaints ENT Reports no additional complaints Card Reports no additional complaints Resp Reports no additional complaints GI Reports as per HPI and Reports no additional complaints Reports as per HPI Musc Reports no additional complaints Skin/Breast Reports as per HPI Neuro Reports no additional complaints Psych Reports no additional complaints Endo Reports no additional complaints Nasir/Lymph Reports no additional complaints Aller/Immun Reports no additional complaints Physical Exam Vital Signs: Last Vital Signs BP 124/76 08/27/25 07:54 BMI result Body Mass Index 32.3 Const General: cooperative, healthy appearing, no acute distress, well developed and alert Orientation/consciousness: patient oriented x3 HEENT Head: Yes normal to inspection Eyes General: appearance normal, both eyes and all related structures Neck Neck: Yes normal visual inspection Thyroid: Thyroid normal Chest Chest palpation & inspection: normal inspection of the chest and other (no puckering, dimpling, peau de orange, retraction, discharge, masses) Breast/axilla inspection: normal inspection of the breasts Breast/axilla palpation: normal palpation of the breasts Resp Effort & Inspection: normal respiratory effort GI Inspection: Yes normal to inspection Palpation (GI): Soft to palpation Rectal Exam - Female: deferred General: Yes bladder normal to palpation External Female Exam: normal external appearance (Mild hypopigmentation right labia minora) and normal appearance of the urethra Speculum Exam - Vagina: normal appearance of the vagina, normal palpation, normal vaginal discharge and vagina atrophic Speculum Exam - Cervix: normal appearance of the cervix and normal palpation Bimanual exam- vagina & uterus: normal bimanual exam, normal palpation, uterine size normal, bladder normal to palpation, normal palpation and non-tender Bimanual Exam- Adnexa, other: no masses Skin General skin exam: no rashes or lesions noted Rashes: no rashes Neuro General: patient oriented x3 Cognition (Neuro): normal cognition Extrem General: Yes normal to inspection Psych Attitude: cooperative Thought process: Normal thought process present Assessment & Plan Assessment & Plan (1) Vulvar lesion: Code(s): N90.89 - Other specified noninflammatory disorders of vulva and perineum Plan: Plan skin recheck in 6 months, advised to call sooner if any itching or changes/concerns. Skin biopsy at that visit if indicated. The patient expressed understanding and agreement with the plan of care. All of her questions and concerns were addressed to the best of my ability. (2) Encounter for well woman exam with routine gynecological exam: Code(s): Z01.419 - Encounter for gynecological examination (general) (routine) without abnormal findings Category: Medical Plan Discussed: Current recommendations for pap smears per ASCCP guidelines. Breast awareness, periodic self breast exams and yearly mammogram. Maintain a healthy lifestyle, well balanced diet including Calcium 1,200 mg and Vitamin D 600 IU daily, and routine exercise. Contact the office with any postmenopausal bleeding. Patient verbalizes understanding and agrees to the plan of care. She was given opportunity to ask questions and all questions were answered to the best of my ability. RTO in 1 year for annual assistant women's basketball coach exam. This note is constructed using voice recognition software. While every effort has been made to ensure accuracy, leadite worker errors may have been included. Coding Level of Care Code Est Pt Prev Care 40-64y(15165) Diagnoses Vulvar lesion N90.89 Encounter for well woman exam with routine gynecological exam Z01.419
[2025-08-27 07:54] VITALS: BP 124/76; BMI 32.3
== END 2025-08-27 08:52 | disposition home or self-care (01) ==
LOC: HO.HWS 07:49
PROVIDERS: PCP Physician Assistant; Visit Provider Advanced Practice Midwife
DX: Z01.419 Encounter for gynecological examination (general) (routine) without abnormal findings (principal); N90.89 Other specified noninflammatory disorders of vulva and perineum
CPT/HCPCS: 99396; 99459